=== PATIENT | male | born 1940 | race African-American/Black ===

== ENCOUNTER 2018-02-21 20:30 | Emergency (ER) | payer OTHER, MEDICARE ==
[2018-02-21] MEDS ORDERED: LIDOCAINE 1% INJ-PF (10 MG/ML) 30 ML SDV ONE (20:38)
[2018-02-21] MEDS ORDERED: LIDOCAINE 1%/EPINEPHRINE INJ 20 ML VIAL INJ ONE (20:40)
[2018-02-21] MEDS ORDERED: CEFAZOLIN 1 GM/D5W RTU 1 GM/50 ML RTUPB IV ONE ×2 (20:42→21:33)
[2018-02-21] MEDS ORDERED: NORMAL SALINE 1000 ML 1,000 ML IV ONE (20:46)
[2018-02-21] MEDS ORDERED: TETANUS/DIPHTHERIA TOX-ADULT 0.5 ML SYR (>=7YO) IM ONE (20:47)
[2018-02-21 20:51] LABS: ABSOLUTE BASOPHILS # (AUTO) 0.1 10^3/uL (0.0-0.2); ABSOLUTE EOSINOPHILS # (AUTO) 0.2 10^3/uL (0.0-0.6); ABSOLUTE LYMPHOCYTES (AUTO) 2.5 10^3/uL (0.5-4.7); ABSOLUTE MONOCYTES (AUTO) 0.8 10^3/uL (0.1-1.4); ABSOLUTE NEUT (AUTO) 5.9 10^3/uL (1.7-8.2); EOSINOPHILS % (AUTO) 2.3 % (0-6); HEMATOCRIT 43.8 % (37.9-51.0); HEMOGLOBIN 14.6 g/dL (13.5-17.0); LYMPHOCYTES % (AUTO) 26.3 % (13-45); MEAN CORPUSCULAR HEMOGLOBIN 29.2 pg (27.0-33.4); MEAN CORPUSCULAR HGB CONC 33.3 g/dL (32.0-36.0); MEAN CORPUSCULAR VOLUME 88 fl (80-97); MONOCYTES % (AUTO) 8.8 % (3-13); PLATELET COUNT 189 10^3/uL (150-450); RED CELL DISTRIBUTION WIDTH 14.9 % (11.5-14.0); SEGMENTED NEUTROPHILS % (AUTO) 61.6 % (42-78); TOTAL CELLS COUNTED % (AUTO) 100 %; WHITE BLOOD COUNT 9.6 10^3/uL (4.0-10.5)
[2018-02-21 21:01] LABS: ANION GAP 12 (5-19); BLOOD UREA NITROGEN 34 mg/dL (7-20); CALCIUM 9.8 mg/dL (8.4-10.2); CARBON DIOXIDE 26 mmol/L (22-30); CHLORIDE 109 mmol/L (98-107); GLUCOSE 110 mg/dL (75-110); SODIUM 147.2 mmol/L (137-145)
--- NOTE | 2018-02-21 21:16 | RADIOLOGY REPORT (SQ) ---
EXAM DESCRIPTION: CHEST SINGLE VIEW COMPLETED DATE/TIME: 02/21/2018 8:53 pm REASON FOR STUDY: chainsaw injury COMPARISON: None. EXAM PARAMETERS: NUMBER OF VIEWS: One view. TECHNIQUE: Single frontal radiographic view of the chest acquired. RADIATION DOSE: NA LIMITATIONS: None. FINDINGS: LUNGS AND PLEURA: No opacities, masses or pneumothorax. No pleural effusion. MEDIASTINUM AND HILAR STRUCTURES: No masses. Contour normal. HEART AND VASCULAR STRUCTURES: Heart normal in size. Normal vasculature. BONES: No acute findings. HARDWARE: None in the chest. OTHER: No other significant finding. IMPRESSION: NO ACUTE RADIOGRAPHIC FINDING IN THE CHEST. TECHNICAL DOCUMENTATION: JOB ID: [id number] [employer]- All Rights Reserved Reading location - IP/workstation name: [id number]
--- NOTE | 2018-02-21 21:19 | RADIOLOGY REPORT (SQ) ---
EXAM DESCRIPTION: CT SOFT TISSUE NECK WITH COMPLETED DATE/TIME: 02/21/2018 9:06 pm REASON FOR STUDY: chop saw v upper chest neck COMPARISON: None. TECHNIQUE: Post IV contrasted scanning from skull base through lung apices with review of bone, soft tissue and lung windows. Reconstructed coronal and sagittal MPR images reviewed. All images stored on PACS. All CT scanners at this facility use dose modulation, iterative reconstruction, and/or weight based d osing when appropriate to reduce radiation dose to as low as reasonably achievable (ALARA). [facility]: Dose Right [facility]: CareDose [facility]: Dose Right [facility]: Teradose 4D [facility]: [employer] CONTRAST TYPE AND DOSE: contrast/concentration: Isovue 370.00 mg/ml; Total Contrast Delivered: 75.0 ml; Total Saline Delivered: 45.0 ml RENAL FUNCTION: TESTING WAIVED BY THE EMERGENCY ROOM PHYSICIAN RADIATION DOSE: CT Rad equipment meets quality standard of care and radiation dose reduction techniq ues were employed. CTDIvol: 16.6 mGy. DLP: 741 mGy-cm. . LIMITATIONS: None. FINDINGS: SKULL BASE: Intact. MAJOR SALIVARY GLANDS: No solid or cystic masses. No inflammatory changes. LYMPHADENOPATHY: No adenopathy. MUCOSAL MASSES OR ASYMMETRY: No mucosal masses or asymmetry. LARYNX/CORDS: No abnormal findings. VASCULAR STRUCTURES: Major vessels are patent and intact. LUNG APICES: Clear. BONES: Intact. THYROID: Normal size. No masses. PARANASAL SINUSES: Right maxillary sinus is almost completely opacified. OTHER: There is air in the anterior soft tissues in the neck, right more than left. A wound can be s een. IMPRESSION: Soft tissue injury in the base of the neck on the right with air in the soft tissues. N o major vascular injury is appreciated. TECHNICAL DOCUMENTATION: JOB ID: [id number] Quality ID # [id number]: Final reports with documentation of one or more dose reduction techniques (e.g., Au tomated exposure control, adjustment of the mA and/or kV according to patient size, use of iterative reconstruction technique) 2010 [employer]- All Rights Reserved Reading location - IP/workstation name: [id number]
[2018-02-21] MEDS ORDERED: CEFAZOLIN INJ 1 GM VIAL IV ONE (21:29)
--- NOTE | 2018-02-21 21:37 | ER Document Report ---
ED General - General Chief Complaint: Laceration Stated Complaint: CHEST LACERATION Time Seen by Provider: 02/21/18 20:43 TRAVEL OUTSIDE OF THE [place] IN LAST 30 DAYS: No - Related Data Allergies/Adverse Reactions: Penicillins Allergy (Verified 03/22/16 10:59) Past Medical History - Social History Family History: Reviewed & Not Pertinent - Past Medical History Cardiac Medical History: Reports: Hx Hypertension Endocrine Medical History: Denies: Hx Diabetes Mellitus Type 2 Past Surgical History: Reports: Hx Orthopedic Surgery - R KNEE 'TELESCOPE' Physical Exam - Vital signs Vitals: Resp Pulse Ox 19 97 02/21/18 20:39 02/21/18 20:39 Course - Vital Signs Vital signs: Temp Pulse Resp BP Pulse Ox 14 164/86 H 96 02/21/18 21:05 02/21/18 20:42 02/21/18 21:05 - Laboratory Result Diagrams: 02/21/18 20:35 02/21/18 20:35 Laboratory results interpreted by me: 02/21/18 02/21/18 20:35 20:35 RDW 14.9 H Sodium 147.2 H Chloride 109 H BUN 34 H Creatinine 1.41 H Est GFR ( Amer) 59 L Est GFR (Non-Af Amer) 49 L Discharge - Discharge Clinical Impression: Laceration of neck Qualifiers: Encounter type: initial encounter Qualified Code(s): S11.91XA - Laceration without foreign body of unspecified part of neck, initial encounter Condition: Good Disposition: HOME, SELF-CARE Instructions: Laceration Care ([facility]), Tetanus Immunization Given ([facility]) Additional Instructions: Please keep your wound clean and dry covered for the next 48 hours after 48 hours you can resume a regular showering. Please follow-up with the surgeon listed in 1 week. Call their office tomorrow to schedule a follow-up appointment Referrals: ADELAIDA LEYVA MD [ACTIVE STAFF] - Follow up in 1 week
--- NOTE | 2018-02-21 22:07 | PDOC CONSULTATION ---
Consultation Consult Date: 02/21/18 Consult reason:: Laceration to the anterior neck History of Present Illness Patient complains of: Laceration to the anterior neck History of Present Illness: LOC INFANTE is a 78 year old male seen in consultation at the request of the emergency department physician. The patient was using a saw earlier today to cut metal. The saw kicked back and cut him in the anterior lower neck. The patient denies any active bleeding. He does report pain in the area. He also denies shortness of breath or chest pain. Nothing makes his pain better or worse. Past Medical History Cardiac Medical History: Reports: Hypertension Endocrine Medical History: Denies: Diabetes Mellitus Type 2 Past Surgical History Past Surgical History: Reports: Orthopedic Surgery - R KNEE 'TELESCOPE', Other - Colonoscopy Social History Smoking Status: Never Smoker Frequency of Alcohol Use: None Hx Recreational Drug Use: No Family History Family History: Reviewed & Not Pertinent Parental Family History Reviewed: Yes Children Family History Reviewed: Yes Sibling(s) Family History Reviewed.: Yes Medication/Allergy Home Medications: Hydrocodone/Acetaminophen [[place] 5-325 mg Tablet] 1 tab PO Q6HP PRN #12 tablet 03/22/16 Prednisone [Deltasone 20 mg Tablet] 3 tab PO DAILY 5 Days tablet 03/22/16 Allergies/Adverse Reactions: Penicillins Allergy (Verified 03/22/16 10:59) Review of Systems Constitutional: ABSENT: anorexia, chills, fatigue, fever(s), headache(s) Eyes: ABSENT: visual disturbances Nose, Mouth, and Throat: PRESENT: other - Laceration to the anterior neck. ABSENT: mouth pain, sore throat Cardiovascular: ABSENT: chest pain, palpitations Respiratory: ABSENT: cough, dyspnea, hemoptysis Gastrointestinal: ABSENT: abdominal pain, bloating, nausea, vomiting Genitourinary: ABSENT: dysuria Integumentary: PRESENT: wounds - Anterior neck. ABSENT: pruritus, rash Neurological: ABSENT: abnormal gait, abnormal movements, abnormal speech Psychiatric: ABSENT: anxiety, depression Endocrine: ABSENT: cold intolerance, heat intolerance Hematologic/Lymphatic: ABSENT: easy bleeding, easy bruising Physical Exam Vital Signs: Temp Pulse Resp BP Pulse Ox 14 164/86 H 96 02/21/18 21:05 02/21/18 20:42 02/21/18 21:05 General appearance: PRESENT: no acute distress Head exam: PRESENT: normocephalic Eye exam: PRESENT: EOMI, PERRLA. ABSENT: scleral icterus Mouth exam: PRESENT: moist Teeth exam: PRESENT: poor dentation Neck exam: PRESENT: other - 10 cm laceration to the lower anterior neck. Does involve the platysma, does not involve deeper structures. No active bleeding. Respiratory exam: PRESENT: clear to auscultation iván. ABSENT: chest wall tenderness, rales, rhonchi, stridor Cardiovascular exam: PRESENT: RRR Pulses: PRESENT: normal radial pulses Vascular exam: PRESENT: normal capillary refill. ABSENT: pallor GI/Abdominal exam: PRESENT: soft. ABSENT: distended, tenderness Rectal exam: PRESENT: deferred Extremities exam: ABSENT: pedal edema Musculoskeletal exam: PRESENT: normal inspection Neurological exam: PRESENT: alert, awake, oriented to person, oriented to place , oriented to time, oriented to situation, CN II-XII grossly intact. ABSENT: motor sensory deficit Psychiatric exam: ABSENT: agitated, anxious, depressed Skin exam: PRESENT: other - See neck exam. ABSENT: cyanosis, erythema, jaundice , pallor, rash Results Laboratory Results: 02/21/18 20:35 02/21/18 20:35 02/21/18 02/21/18 20:35 20:35 WBC 9.6 RBC 5.00 Hgb 14.6 Hct 43.8 MCV 88 MCH 29.2 MCHC 33.3 RDW 14.9 H Plt Count 189 Seg Neutrophils % 61.6 Lymphocytes % 26.3 Monocytes % 8.8 Eosinophils % 2.3 Basophils % 1.0 Absolute Neutrophils 5.9 Absolute Lymphocytes 2.5 Absolute Monocytes 0.8 Absolute Eosinophils 0.2 Absolute Basophils 0.1 Sodium 147.2 H Potassium 4.0 Chloride 109 H Carbon Dioxide 26 Anion Gap 12 BUN 34 H Creatinine 1.41 H Est GFR ( Amer) 59 L Est GFR (Non-Af Amer) 49 L Glucose 110 Calcium 9.8 Impressions: Chest X-Ray 02/21/18 20:42 IMPRESSION: NO ACUTE RADIOGRAPHIC FINDING IN THE CHEST. Soft Tissue Neck CT 02/21/18 20:45 IMPRESSION: Soft tissue injury in the base of the neck on the right with air in the soft tissues. No major vascular injury is appreciated. Assessment & Plan - Diagnosis (1) Laceration of neck Qualifiers: Encounter type: initial encounter Qualified Code(s): S11.91XA - Laceration without foreign body of unspecified part of neck, initial encounter Is this a current diagnosis for this admission?: Yes - Plan Summary Plan Summary: This is a 78-year-old male with a laceration to the anterior lower neck. I have reviewed the patient's CT scan. He does have air tracking anterior to the muscles of the neck. There is no evidence of significant aerodigestive injury. There is no evidence of significant vascular injury. Patient has no active bleeding. Recommended irrigation and closure of the wound. The patient has received tetanus booster and Ancef. Risks/benefits discussed with the patient, informed consent obtained from the patient, and all questions were answered. After the wound has been closed, the patient is to follow-up with me in the office in 1 week.
--- NOTE | 2018-02-21 22:10 | Operative Report ---
Nonrecallable Operative Report DATE OF SURGERY: 02/21/18 PREOPERATIVE DIAGNOSIS: Laceration to the anterior neck. POSTOPERATIVE DIAGNOSIS: Laceration to the anterior neck, 10 cm OPERATION: Intermediate closure of a 10 cm anterior neck laceration SURGEON: ADELAIDA LEYVA ANESTHESIA: Local TISSUE REMOVED OR ALTERED: None COMPLICATIONS: None apparent ESTIMATED BLOOD LOSS: Minimal PROCEDURE: Drains/implants: None. Procedure in detail: After informed consent was obtained, the patient was laid in the recumbent position in the ER. The area of the wound was prepped with Betadine solution. 1% lidocaine with epinephrine was used to anesthetize the skin around the laceration. An entire 1 L bottle of saline solution mixed with Betadine was used to irrigate the wound. Once the wound was cleaned, the subcutaneous tissues (muscle/platysma) were closed using 2-0 Vicryl suture. The overlying skin was closed using skin zena. A dressing was fashioned, and the procedure was concluded. All sponge, instrument, and needle counts were correct 2. Condition: Stable.
[2018-02-21 22:56] VITALS: BP 153/88
--- NOTE | 2018-02-21 23:42 | ER Document Report ---
ED General - General Chief Complaint: Laceration Stated Complaint: CHEST LACERATION Time Seen by Provider: 02/21/18 20:43 TRAVEL OUTSIDE OF THE [place] IN LAST 30 DAYS: No - HPI Patient complains to provider of: Chest laceration lower neck laceration Notes: Patient coming in with a laceration to the right upper chest lower neck. Patient states he was using a chop saw cutting up metal and the saw kicked back hitting in the chest causing a laceration. Patient unaware of his last tetanus states tolerating antibiotics. Patient brought back to the trauma room for further evaluation of the being evaluated in triage. Upon my initial evaluation patient talking complete sentences denies any shortness of breath. - Related Data Allergies/Adverse Reactions: Penicillins Allergy (Verified 03/22/16 10:59) Past Medical History - Social History Smoking Status: Never Smoker Chew tobacco use (# tins/day): No Frequency of alcohol use: None Drug Abuse: None Family History: Reviewed & Not Pertinent Patient has suicidal ideation: No Patient has homicidal ideation: No - Past Medical History Cardiac Medical History: Reports: Hx Hypertension Endocrine Medical History: Denies: Hx Diabetes Mellitus Type 2 Renal/ Medical History: Denies: Hx Peritoneal Dialysis Past Surgical History: Reports: Hx Orthopedic Surgery - R KNEE 'TELESCOPE', Other - Colonoscopy Review of Systems - Review of Systems Constitutional: No symptoms reported EENT: No symptoms reported Cardiovascular: Other - Chest laceration Respiratory: No symptoms reported Gastrointestinal: No symptoms reported Genitourinary: No symptoms reported Male Genitourinary: No symptoms reported Musculoskeletal: No symptoms reported Skin: No symptoms reported Hematologic/Lymphatic: No symptoms reported Neurological/Psychological: No symptoms reported -: Yes All other systems reviewed and negative Physical Exam - Vital signs Vitals: Resp Pulse Ox 19 97 02/21/18 20:39 02/21/18 20:39 Interpretation: Normal - General General appearance: Appears well, Alert - HEENT Head: Normocephalic, Atraumatic Eyes: Normal Pupils: PERRL - Respiratory Respiratory status: No respiratory distress Chest status: Other - Evaluation of chest does reveal large laceration starting almost at the coracoid process going across the clavicle to the lower neck that does look like it involves the musculature. There is no signs of a sucking wound as the patient is able to take deep breaths and lung lowe do remain intact. Bleeding is otherwise controlled is no signs of any rapid arterial bleeds the medial portion of the laceration does involve the lower part of the neck does look like it violates some platysma there is no signs of any expanding hematomas Breath sounds: Normal Chest palpation: Normal - Cardiovascular Rhythm: Regular Heart sounds: Normal auscultation Murmur: No - Abdominal Inspection: Normal Distension: No distension Bowel sounds: Normal Tenderness: Nontender Organomegaly: No organomegaly - Back Back: Normal, Nontender - Extremities General upper extremity: Normal inspection, Nontender, Normal color, Normal ROM , Normal temperature General lower extremity: Normal inspection, Nontender, Normal color, Normal ROM , Normal temperature, Normal weight bearing. No: Britney's sign - Neurological Neuro grossly intact: Yes Cognition: Normal Orientation: AAOx4 [place] Coma Scale Eye Opening: Spontaneous [place] Coma Scale Verbal: Oriented Carlie Coma Scale Motor: Obeys Commands [place] Coma Scale Total: 15 Speech: Normal Motor strength normal: LUE, RUE, LLE, RLE Sensory: Normal - Psychological Associated symptoms: Normal affect, Normal mood - Skin Skin Temperature: Warm Skin Moisture: Dry Skin Color: Normal Course - Re-evaluation Re-evalutation: 02/21/18 23:40 Chest x-ray performed showing no signs of pneumothorax wound was dressed patient was given tetanus shot and antibiotics were started. CT scan was performed to evaluate vasculature no signs of any vascular involvement. The laceration was large involves the musculature and the platysma I did have our surgeon collection development librarian evaluate the wound he was grateful enough to attend to the wound closing in the trauma room please refer to his surgical note. Follow-up instructions were given to the patient wound care instructions also given to the patient patient remained stable during his entire visit here in ER and was discharged home - Vital Signs Vital signs: Temp Pulse Resp BP Pulse Ox 97.7 F 18 153/88 H 99 02/21/18 22:40 02/21/18 22:40 02/21/18 22:40 02/21/18 22:40 - Laboratory Result Diagrams: 02/21/18 20:35 02/21/18 20:35 Laboratory results interpreted by me: 02/21/18 02/21/18 20:35 20:35 RDW 14.9 H Sodium 147.2 H Chloride 109 H BUN 34 H Creatinine 1.41 H Est GFR ( Amer) 59 L Est GFR (Non-Af Amer) 49 L Critical Care Note - Critical Care Note Total time excluding time spent on procedures (mins): 35 Comments: Time spent initial evaluation for patient with a large traumatic wound to the chest neck/ Discharge - Discharge Clinical Impression: Laceration of neck Qualifiers: Encounter type: initial encounter Qualified Code(s): S11.91XA - Laceration without foreign body of unspecified part of neck, initial encounter Condition: Good Disposition: HOME, SELF-CARE Instructions: Laceration Care ([facility]), Tetanus Immunization Given ([facility]) Additional Instructions: Please keep your wound clean and dry covered for the next 48 hours after 48 hours you can resume a regular showering. Please follow-up with the surgeon listed in 1 week. Call their office tomorrow to schedule a follow-up appointment Referrals: ADELAIDA LEYVA MD [ACTIVE STAFF] - Follow up in 1 week
== END 2018-02-21 22:54 | disposition home or self-care (01) ==
LOC: ER 20:30
DX: S16.2XXA Laceration of muscle, fascia and tendon at neck level, initial encounter (principal); S11.91XA Laceration without foreign body of unspecified part of neck, initial encounter; S21.111A Laceration without foreign body of right front wall of thorax without penetration into thoracic cavity, initial encounter; W29.8XXA Contact with other powered hand tools and household machinery, initial encounter; Y93.89 Activity, other specified; Z23 Encounter for immunization; I10 Essential (primary) hypertension
CPT/HCPCS: 99285; 96361; 90471; 96365; 36415; 87040; 85025; 80048; 71045; 70491; 90714; 13132; 13133; J0690; J3490; J7030

== ENCOUNTER 2018-07-11 13:40 | Emergency (ER) | payer OTHER, MEDICARE ==
--- NOTE | 2018-07-11 14:33 | ER Document Report ---
ED General - General Chief Complaint: Rectal Pain Stated Complaint: PRIVATE PAIN TRAVEL OUTSIDE OF THE [place] IN LAST 30 DAYS: No - Related Data Allergies/Adverse Reactions: Penicillins Allergy (Verified 07/11/18 13:44) Past Medical History - Social History Smoking Status: Never Smoker Chew tobacco use (# tins/day): No Frequency of alcohol use: None Drug Abuse: None Family History: Reviewed & Not Pertinent Patient has suicidal ideation: No Patient has homicidal ideation: No - Past Medical History Cardiac Medical History: Reports: Hx Hypertension Endocrine Medical History: Denies: Hx Diabetes Mellitus Type 2 Renal/ Medical History: Denies: Hx Peritoneal Dialysis Past Surgical History: Reports: Hx Orthopedic Surgery - R KNEE 'TELESCOPE', Other - Colonoscopy Review of Systems - Review of Systems Constitutional: No symptoms reported EENT: No symptoms reported Cardiovascular: No symptoms reported Respiratory: No symptoms reported Gastrointestinal: Abdominal pain Genitourinary: No symptoms reported Male Genitourinary: No symptoms reported Musculoskeletal: No symptoms reported Skin: No symptoms reported Hematologic/Lymphatic: No symptoms reported Neurological/Psychological: No symptoms reported Physical Exam - Vital signs Vitals: Temp Pulse Resp BP Pulse Ox 97.6 F 61 20 127/92 H 96 07/11/18 13:50 07/11/18 13:50 07/11/18 13:50 07/11/18 13:50 07/11/18 13:50 - General General appearance: Appears well, Alert - HEENT Head: Normocephalic, Atraumatic Eyes: Normal Pupils: PERRL - Respiratory Respiratory status: No respiratory distress Chest status: Nontender Breath sounds: Normal Chest palpation: Normal - Cardiovascular Rhythm: Regular Heart sounds: Normal auscultation Murmur: No - Abdominal Inspection: Normal Distension: No distension Bowel sounds: Normal Tenderness: Nontender Organomegaly: No organomegaly - Back Back: Normal, Nontender - Extremities General upper extremity: Normal inspection, Nontender, Normal color, Normal ROM , Normal temperature General lower extremity: Normal inspection, Nontender, Normal color, Normal ROM , Normal temperature - Neurological Neuro grossly intact: Yes Cognition: Normal Orientation: AAOx4 [place] Coma Scale Eye Opening: Spontaneous [place] Coma Scale Verbal: Oriented [place] Coma Scale Motor: Obeys Commands [place] Coma Scale Total: 15 Speech: Normal Motor strength normal: LUE, RUE, LLE, RLE Sensory: Normal - Psychological Associated symptoms: Normal affect, Normal mood - Skin Skin Temperature: Warm Skin Moisture: Dry Skin Color: Normal Course - Vital Signs Vital signs: Temp Pulse Resp BP Pulse Ox 97.6 F 61 20 127/92 H 96 07/11/18 13:50 07/11/18 13:50 07/11/18 13:50 07/11/18 13:50 07/11/18 13:50
--- NOTE | 2018-07-11 14:38 | ER Document Report ---
ED General - General Mode of Arrival: Ambulatory Information source: Patient TRAVEL OUTSIDE OF THE [place] IN LAST 30 DAYS: No - HPI Patient complains to provider of: Hemorrhoid Onset: Yesterday Onset/Duration: Sudden Quality of pain: Sharp Associated symptoms: None Similar symptoms previously: No Recently seen / treated by doctor: Yes - In at the NH clinic this morning by BRIANNA Garner. Transferred to the ED - General Chief Complaint: Rectal Pain Stated Complaint: PRIVATE PAIN Time Seen by Provider: 07/11/18 14:15 - HPI Notes: Very pleasant 78-year-old male with hypertension transferred from the NH by a PA who diagnosed him with an external hemorrhoid. Patient endorsed that he was using the bathroom last night having a bowel movement and when he wiped he saw blood on the toilet paper. He only noticed blood the one time. He stated the site is exquisitely painful to light touch. He endorses frequent straining when sitting on the toilet. Patient denies any fever, chills, saddle paresthesia, urinary retention or incontinence. He does endorse low energy. ( LUANNE ANGEL) - Related Data Allergies/Adverse Reactions: Penicillins Allergy (Verified 07/11/18 13:44) Past Medical History - General Information source: Patient - Social History Smoking Status: Never Smoker Cigarette use (# per day): No Chew tobacco use (# tins/day): No Frequency of alcohol use: Occasional Drug Abuse: None Family History: Reviewed & Not Pertinent Patient has suicidal ideation: No Patient has homicidal ideation: No - Past Medical History Cardiac Medical History: Reports: Hx Hypertension Endocrine Medical History: Denies: Hx Diabetes Mellitus Type 2 Renal/ Medical History: Denies: Hx Peritoneal Dialysis Past Surgical History: Reports: Hx Orthopedic Surgery - R KNEE 'TELESCOPE', Other - Colonoscopy Review of Systems - Review of Systems Constitutional: No symptoms reported EENT: No symptoms reported Cardiovascular: No symptoms reported Respiratory: No symptoms reported Gastrointestinal: Rectal bleeding - x1 last night after wiping Genitourinary: No symptoms reported Male Genitourinary: No symptoms reported Musculoskeletal: No symptoms reported Skin: No symptoms reported Hematologic/Lymphatic: No symptoms reported Neurological/Psychological: No symptoms reported -: Yes All other systems reviewed and negative Physical Exam - General General appearance: Appears well In distress: None - HEENT Head: Normocephalic Eyes: Normal Conjunctiva: Normal Cornea: Normal - Respiratory Respiratory status: No respiratory distress Chest status: Nontender Breath sounds: Normal Chest palpation: Normal - Cardiovascular Rhythm: Regular Heart sounds: Normal auscultation, S1 appreciated, S2 appreciated Murmur: No - Abdominal Inspection: Normal Distension: No distension Bowel sounds: Normal Tenderness: Nontender - Rectal Tenderness: Yes Hemorrhoids: External - 2 cm x 2 cm external hemorrhoid located at 8 o'clock position. Attempted to palpate for internal hemorrhoids, none felt. - Neurological Neuro grossly intact: Yes Cognition: Normal Orientation: AAOx4 Carlie Coma Scale Eye Opening: Spontaneous Carlie Coma Scale Verbal: Oriented Callahan Coma Scale Motor: Obeys Commands Callahan Coma Scale Total: 15 Speech: Normal - Psychological Associated symptoms: Normal affect, Normal mood - Skin Skin Temperature: Warm Skin Moisture: Dry Skin Color: Normal - Vital signs Vitals: Temp Pulse Resp BP Pulse Ox 97.6 F 61 20 127/92 H 96 07/11/18 13:50 07/11/18 13:50 07/11/18 13:50 07/11/18 13:50 07/11/18 13:50 - Abdominal Notes: 2 cm x 2 cm thrombosed external hemorrhoid located at the 8 o'clock position, pink in appearance, soft and boggy. (LUANNE ANGEL) Course - Re-evaluation Re-evalutation: 07/11/18 15:[address] Allen. Dr. Allen agreed patient with external hemorrhoid nonsurgical treatment at this time. (LUANNE ANGEL) 07/11/18 23:40 Evaluated the patient with the mid-level at bedside. Patient has a hemorrhoid small partially thrombosed. There is at this time will treat with symptom medic treatment numbing agents and hemorrhoid cream. Discussed multiple options treatments for his topical agents versus surgery with general surgeon and gastroenterology. [facility] patient will be discharged home. 07/11/18 23:41 (KARY ALLEN) - Vital Signs Vital signs: Temp Pulse Resp BP Pulse Ox 97.6 F 60 16 131/76 H 98 07/11/18 15:15 07/11/18 15:15 07/11/18 15:15 07/11/18 15:15 07/11/18 15:15 Discharge - Discharge Clinical Impression: Hemorrhoid Qualifiers: Hemorrhoid type: unspecified Qualified Code(s): K64.9 - Unspecified hemorrhoids Condition: Good Disposition: HOME, SELF-CARE Instructions: Hemorrhoids ([facility]) Additional Instructions: You came to the emergency department today for an external hemorrhoid. You were prescribed some wipes that have lidocaine gel impregnated in them. You have a bowel movement use the wipes to numb up the area. Also prescribed a stool softener. Take it 1-2 times per day depending on how your stool is. If you have loose stools hold the stool softener medication. You are also prescribed a cream called Analpram that you should apply to the hemorrhoid 3 times per day will help reduce the size of the hemorrhoid. Please return to the emergency room if you have any fevers chills or excessive bleeding from the area. Prescriptions: Hydrocortisone/Pramoxine [Analpram Hc 2.5% Cream] 30 gm RC TID #1 tube Lidocaine HCl/Glycerin [Recticare Wipes] 1 each TP ASDIR PRN #60 towelette PRN Reason: Hemorrhoids Sennosides/Docusate Sodium [Senna-S Laxative Tablet] 1 each PO BID #30 tablet
[2018-07-11] MEDS ORDERED: LIDOCAINE 2% URO-JET 5 ML KIT MM ONE (15:02)
[2018-07-11 15:19] VITALS: BP 131/76
== END 2018-07-11 15:15 | disposition home or self-care (01) ==
LOC: ER 13:40
DX: K64.5 Perianal venous thrombosis (principal); I10 Essential (primary) hypertension; Z88.0 Allergy status to penicillin
CPT/HCPCS: 99283; J3490